=== PATIENT | female | born 1935 | race Caucasian/White ===

== ENCOUNTER 2020-04-21 19:21 | Inpatient (IN) | payer BC, MEDICARE ==
[~2020-04-21] VITALS: Ht 157.5 cm; Wt 50.8 kg
[~2020-04-21 19:21] MED LIST: ACET325T53 PO; ASCO500C16 PO; BUSP15TA3 PO; CLOP75TA15 PO; DULO60CA45 PO; HYDR-3974 PO; LEVO150T8 PO; MEMA10TA PO; QUET50TA PO; RANI300T4 PO
--- NOTE | 2020-04-21 19:34 | NUR ---
PT AAOX3. BIBRA FROM HOME FOR "SYNCOPAL EPISODE". NO FALL EPISODE REPORTED BY PATIENT. SKIN WARM AND INTACT. NO ACUTE DISTRESS NOTED. RR EVEN AND UNLABORED. NO NEURO DEFICT NOTED WELL. PT DENIES PAIN. AWAITING MD FOR EVAL AND ORDERS.
--- NOTE | 2020-04-21 19:48 | NUR ---
XRAY AT BEDSIDE
--- NOTE | 2020-04-21 19:52 | NUR ---
PT BROUGHT TO CT
--- NOTE | 2020-04-21 20:04 | NUR ---
SPOKE TO LAB. WILL DRAW BLOOD SOON.
--- NOTE | 2020-04-21 20:10 | NUR ---
WIRING MECHANIC AT BEDSIDE
[2020-04-21 20:19] LABS: BASOPHILS % (AUTO) 0.5 % (0.0-2.0); EOSINOPHILS % (AUTO) 0.7 % (0.0-6.0); HEMATOCRIT 36 % (33-45); HEMOGLOBIN 11.8 g/dL (11.5-14.8); LYMPHOCYTES # (AUTO) 1.4 /CMM (0.8-4.8); LYMPHOCYTES % (AUTO) 19.4 % (20.0-44.0); MEAN CORPUSCULAR HGB CONC 32 g/dl (31.0-36.0); MEAN CORPUSCULAR VOLUME 87 fL (82-100); MONOCYTES # (AUTO) 0.5 /CMM (0.1-1.30); MONOCYTES % (AUTO) 6.9 % (2.0-12.0); NEUTROPHILS # (AUTO) 5.1 /CMM (1.8-8.9); NEUTROPHILS % (AUTO) 72.5 % (43.0-81.0); PLATELET COUNT (AUTO) 255 /CMM (150-450); RED BLOOD CELL COUNT(AUTO) 4.19 MIL/uL (4.0-5.2)
[2020-04-21 20:27] LABS: CALCIUM, SERUM 9.1 mg/dL (8.5-10.1); CARBON DIOXIDE 27 mmol/L (21-32); CHLORIDE 105 mmol/L (98-107); CREATININE 1.3 mg/dL (0.6-1.3); GLUCOSE 147 mg/dL (74-106); POTASSIUM 3.7 mmol/L (3.5-5.1); SODIUM SERUM 140 mmol/L (136-145); UREA NITROGEN, BLOOD 27 mg/dL (7-18)
[2020-04-21] MEDS ORDERED: IV NS 0.9% 1,000 ML IV ONE (20:30)
--- NOTE | 2020-04-21 21:03 | NUR ---
URINE COLLECTED AND SENT TO LAB
[2020-04-21 21:08] LABS: BILIRUBIN,URINE Negative (NEGATIVE); BLOOD, URINE Moderate Ery/uL (NEGATIVE); COLOR,URINE Yellow (YELLOW); KETONES,URINE Trace (NEGATIVE); LEUKOCYTE ESTERASE ,URINE Small (NEGATIVE); NITRITE, URINE Negative (NEGATIVE); PROTEIN,URINE >=300 mg/dl (NEGATIVE); UGLUCOSE Negative (NEGATIVE); UROBILINOGEN,URINE 0.2 EU/dL (0.2)
[2020-04-21 21:14] LABS: APPEARANCE,URINE CLOUDY (CLEAR)
--- NOTE | 2020-04-21 21:16 | NUR ---
PT DENIES PAIN. PROVIDED WITH BLANKET. VSS.
--- NOTE | 2020-04-21 21:22 | NUR ---
PAGED CODI VASQUEZ
[2020-04-21 21:29] LABS: BACTERIA,URINE Few /HPF (None Seen); MUCUS,URINE Few /LPF (None Seen); SQUAMOUS EPITHELIAL CELL,UR Few /HPF (None Seen); URINE AMORPHOUS URATE Moderate /HPF (None Seen); WBC,URINE 81-100 /HPF (0-3)
[2020-04-21] MEDS ORDERED: CEFTRIAXONE 1 G VIAL IM ONE (21:30)
[2020-04-21] MEDS ORDERED: CEFTRIAXONE 1GM BAG (ER ONLY) 50 ML IV ONE (21:34)
--- NOTE | 2020-04-21 21:35 | NUR ---
CALLED SUP FOR BED
--- NOTE | 2020-04-21 21:42 | NUR ---
DR. ROGERS SPEAKING WITH HOSPITALIST
[2020-04-21] MEDS ORDERED: RISP0.5T20 PO (21:57)
[2020-04-21] MEDS ORDERED: CLON1TAB12 PO (21:57)
[2020-04-21] MEDS ORDERED: POTA-10 PO (21:57)
[2020-04-21] MEDS ORDERED: GALA24CA PO (21:57)
--- NOTE | 2020-04-21 21:57 | NUR ---
BED ASSIGNMENT 311-2
[2020-04-21] MEDS ORDERED: CEFTRIAXONE 1GM BAG (ER ONLY) 1 GM/50 ML PIGGYBACK IV ONE (22:00)
[2020-04-21] MEDS: SIMVASTATIN 10 MG TABLET PO SCH (22:00)
--- NOTE | 2020-04-21 22:34 | NUR ---
REPORT GIVEN TO REJI JEAN FOR NOLAN
--- NOTE | 2020-04-21 22:47 | NUR ---
PT TRANSFERED PER ACLS PROTOCOL
--- NOTE | 2020-04-21 22:50 | NUR ---
TELE/RN NEW ADMISSION NOTES RECEIVED PATIENT ON A GURNEY FROM ER ACCOMPANIED BY NURSE, PATIENT ABLE TO STATE NAME, AWAKE, ALERT X2, DX WITH UTI, VITAL SIGNS CHECK WITHIN NORMAL , OBSERVE BEHAVIOR AND ATTEMPTING TO GET OUT OF BED, BUE AND BLE STRONG, KICKING AND HAS STRONG TURBINE ROOM ATTENDANT. REQUIRE EXTENSIVE ASSISTANCE FOR SAFETY. RESPIRATIONS EVEN AND UNLABORED, EASILY DISTRACTED.
[2020-04-21 22:51] VITALS: BP 154/104
--- NOTE | 2020-04-21 22:51 | NUR ---
PATIENT ARRIVED ON A GURNEY AND CAROTID DUPLEX AND ECHO CARDIO BEING DINE AT BEDSIDE SOON PATIENT ARRIVED ON THE ROOM BY CHAS.
[2020-04-21 23:00] VITALS: BP 154/104
[2020-04-22] VITALS: BP 154/104
[2020-04-22] MEDS: IV NS 0.9% 1,000 ML IV SCH ×2 (00:14→16:14)
[2020-04-22] MEDS: ENOXAPARIN SODIUM 30 MG/0.3 ML DISP.SYRIN SQ SCH ×2 (00:15→21:51)
[2020-04-22] MEDS: BLOOD SUGAR DIAGNOSTIC 1 EACH STRIP IN SCH ×6 (00:16→17:28)
--- NOTE | 2020-04-22 01:04 | NUR ---
RECEIVED ORDER FROM MD FOR SOFT RESTRAINTS DUE TO PATIENT BEHAVIOR, COMBATIVE BEHAVIOR, REFUSAL OF CARE AND ATTEMPTING TO GET OUT OF BED.
--- NOTE | 2020-04-22 01:06 | NUR ---
PER MD ORDER TO FOLLOW UP SITTER ONCE AVAILABLE.
[2020-04-22 03:29] LABS: BASOPHILS % (AUTO) 0.5 % (0.0-2.0); EOSINOPHILS % (AUTO) 0.8 % (0.0-6.0); HEMATOCRIT 42 % (33-45); HEMOGLOBIN 13.4 g/dL (11.5-14.8); LYMPHOCYTES # (AUTO) 1.4 /CMM (0.8-4.8); MEAN CORPUSCULAR HGB CONC 32 g/dl (31.0-36.0); MEAN CORPUSCULAR VOLUME 86 fL (82-100); MONOCYTES # (AUTO) 0.3 /CMM (0.1-1.30); NEUTROPHILS # (AUTO) 4.4 /CMM (1.8-8.9); NEUTROPHILS % (AUTO) 70.7 % (43.0-81.0); PLATELET COUNT (AUTO) 261 /CMM (150-450); RED BLOOD CELL COUNT(AUTO) 4.85 MIL/uL (4.0-5.2); WHITE BLOOD COUNT (AUTO) 6.2 K/uL (4.3-11.0)
[2020-04-22 03:44] LABS: ALANINE AMINOTRANSFERASE 24 U/L (12-78); ALBUMIN 3.4 g/dL (3.4-5.0); ALKALINE PHOSPHATASE 91 U/L (46-116); ASPARTATE AMINOTRANSFERASE 20 U/L (15-37); BILIRUBIN,TOTAL 0.5 mg/dL (0.2-1.0); CARBON DIOXIDE 30 mmol/L (21-32); CHLORIDE 104 mmol/L (98-107); GLUCOSE 108 mg/dL (74-106); MAGNESIUM 2.2 mg/dL (1.8-2.4); POTASSIUM 4.1 mmol/L (3.5-5.1); SODIUM SERUM 140 mmol/L (136-145); TOTAL PROTEIN, SERUM 7.4 g/dL (6.4-8.2); UREA NITROGEN, BLOOD 20 mg/dL (7-18)
[2020-04-22 03:55] LABS: CHOLESTEROL 128 mg/dL (<200); HDL CHOLESTEROL 60 mg/dL (40-60); LDL 60 mg/dL (0-99); THYROID STIMULATING HORMONE 1.091 uIU/mL (0.358-3.74); TRIGLYCERIDES 44 mg/dL (30-150)
[2020-04-22 04:00] VITALS: BP 147/85
--- NOTE | 2020-04-22 05:16 | NUR ---
blood sugar check at 110
--- NOTE | 2020-04-22 06:28 | NUR ---
311-2 TELE/RN NOTES ON TELE SR, RESPIRATIONS EVEN AND UNLABORED, ON ROOM AIR, ALERTX1. REQUIRE ASSISTANCE AND MONITOIRNG FOR SAFETY, UNABLE TO FOLLOW SIMPLE COMMANDS, WILL ENDORSE TO AM RN FOR NOLAN.
--- NOTE | 2020-04-22 06:28 | NUR ---
312-1 MS/RN OPENING NOTES PATIENT SLEPT FEW HOURS, TALKING TO SELF WHILE TV ON. RESPIRATIONS EVEN AND UNLABORED, SKIN WARM TO TOUCH, ATTENDED TO ALL NEEDS, BED LOCEKD, CALL LIGHTS WITHIN REACH. WILL MONITOR.
[2020-04-22] MEDS ORDERED: LEVOTHYROXINE SODIUM 150 MCG TABLET PO SCH (07:00)
--- NOTE | 2020-04-22 07:49 | NUR ---
TEXTED DR. LOPEZ FOR MRI APPROVAL.
[2020-04-22 08:00] VITALS: BP 149/93
--- NOTE | 2020-04-22 08:00 | NUR ---
rn notes received patient in the bed , a/o x1, confused, no acute respiratory distress, room air, trying to get out of bed. v/s wnl, on soft restrain upper bilateral arms, checked for circulation q 2 hr, patient npo for aspiration precaution. checked swallow evaluation, patient able to swallow well, administered scheduled medication, seen patient via PT. Patient unable to stand up get out of bed. patient freely moving upper, and lower extremities. call light within to reach, iv access on the left FA intact, infusing NS at 50 ml/hr. call light within to reach, continued monitoring.
[2020-04-22] MEDS ORDERED: LEVOTHYROXINE SODIUM 75 MCG TABLET PO SCH (08:15)
[2020-04-22] MEDS: PANTOPRAZOLE 40 MG VIAL IV SCH (09:56)
[2020-04-22] MEDS: busPIRone 5 MG TABLET PO SCH ×2 (10:10→16:29)
[2020-04-22] MEDS: ASPIRIN EC 325 MG TABLET.DR PO SCH (10:10)
[2020-04-22] MEDS: MEMANTINE HCL 5 MG TABLET PO SCH (10:10)
--- NOTE | 2020-04-22 11:00 | NUR ---
rn notes seen patient by Speech therapist patient on mechanical soft diet.
--- NOTE | 2020-04-22 13:00 | NUR ---
rn notes patient tolerated lunch 25 % with total assist, checked soft restrain for circulation. call light within to reach. patient need MRI W/WO CONTRAST. Called family for consent , left massage for returning back.
--- NOTE | 2020-04-22 15:32 | NUR ---
rn notes Seen patient via neurologist Dr. Hernandez, per MD canceled MRI at this time patient does not needed. Also Md speak family about patient condition.
--- NOTE | 2020-04-22 16:15 | NUR ---
rn notes patient grinding hr teeth often, notified Dr Cristina, and per neurologist patient have enough medication, do not need more sedation.
[2020-04-22] MEDS: risperiDONE 1 MG TABLET PO SCH (17:30)
--- NOTE | 2020-04-22 18:00 | NUR ---
RN NOTES PATIENT STABLE, NO ACUTE RESPIRATORY DISTRESS, ASSIST FOR DINNER PATIENT TOLERATED 35%, V/S STABLE, INFUSING NS AT 100 ML/HR ON LEFT FA INTACT, ALSO ADMINISTERED SCHEDULED MEDICATION BY CRUSHING. RECHECKED RESTRAIN FOR CIRCULATION Q 2 HR. CALL LIGHT WITHIN TO REACH. ENDORSED ONCOMING NURSE FOLLOW PLAN OF CARE.
--- NOTE | 2020-04-22 19:45 | NUR ---
nurse assistant initial notes received report from am nurse Marylu and saw pt in bed confused tried to get up even though pt still on restraint. re-oriented where she at but she doesn't listened . no signs of any acute distress noted. She still with IVF of NS at 100 ml/hr infusing on her LFA patent and intact. both bilateral wrist restrain , skin warm to touch and pulse present. kept her warm and comfortable at all times. will continue monitoring. bed alarm set for safety.
[2020-04-22 20:00] VITALS: BP 148/87
[2020-04-22] MEDS: QUETIAPINE FUMARATE 100 MG TABLET PO SCH (21:46)
[2020-04-22] MEDS: SIMVASTATIN 10 MG TABLET PO SCH (21:46)
[2020-04-22] MEDS: CEFTRIAXONE 2 G in IV D5W 100 ML IV SCH (22:03)
--- NOTE | 2020-04-22 22:32 | NUR ---
immigration case worker notes routine meds given with apples sauce and pt tolerated well. no aspiration noted . kept her warm and comfortable at all times. will continue monitoring. place call light at reach.
[2020-04-23] VITALS: BP 115/47
[2020-04-23] MEDS: BLOOD SUGAR DIAGNOSTIC 1 EACH STRIP IN SCH ×4 (00:35→17:07)
--- NOTE | 2020-04-23 00:40 | NUR ---
road crossing guard notes blood sugar 96, no insulin due at this time. no signs of hypo glycemia noted at this time.
[2020-04-23] MEDS: IV NS 0.9% 1,000 ML IV SCH ×3 (02:49→18:24)
--- NOTE | 2020-04-23 06:50 | NUR ---
tele oil fire specialist closing notes pt back to sleep after sponges bath rendered by KELSI Barrett. stable vidal the night and slept well. no signs of any acute distress noted. All due meds given and all needs met. Blood sugar checked done 85, no insulin due at this time. No signs of hypoglycemia noted. Still with IVF of NS at 100ml/hr . remain on soft wrist restraint for pt safety. Sinus Rhythm per monitor. will endorse to am nurse for continuity of care.
[2020-04-23 07:12] LABS: BASOPHILS % (AUTO) 0.5 % (0.0-2.0); EOSINOPHILS % (AUTO) 1.1 % (0.0-6.0); HEMATOCRIT 31 % (33-45); LYMPHOCYTES # (AUTO) 1.3 /CMM (0.8-4.8); LYMPHOCYTES % (AUTO) 30.4 % (20.0-44.0); MEAN CORPUSCULAR HGB CONC 32 g/dl (31.0-36.0); MEAN CORPUSCULAR VOLUME 87 fL (82-100); MONOCYTES # (AUTO) 0.3 /CMM (0.1-1.30); MONOCYTES % (AUTO) 7.7 % (2.0-12.0); NEUTROPHILS # (AUTO) 2.6 /CMM (1.8-8.9); NEUTROPHILS % (AUTO) 60.3 % (43.0-81.0); PLATELET COUNT (AUTO) 190 /CMM (150-450); WHITE BLOOD COUNT (AUTO) 4.4 K/uL (4.3-11.0)
[2020-04-23 07:30] VITALS: BP 133/56
--- NOTE | 2020-04-23 07:30 | NUR ---
Tele/RN Opening note Received patient in bed AO x 1, able to responds all stimuli. Pt does no appears pain or any discomfort. Respiratory even and unlabored in room air, skin is warm to kept clean/dry, intact IV site. Patient attempting out of the bed, soft restrains on both wrist for safety. Keep bed in lock with low position and elevated head of bed for secure airway. Call light within reach, will continue to monitor for safety.
[2020-04-23 07:49] LABS: ALBUMIN 2.2 g/dL (3.4-5.0); BILIRUBIN,TOTAL 0.4 mg/dL (0.2-1.0); CALCIUM, SERUM 6.7 mg/dL (8.5-10.1); CREATININE 0.7 mg/dL (0.6-1.3); MAGNESIUM 1.6 mg/dL (1.8-2.4); POTASSIUM 3.3 mmol/L (3.5-5.1)
[2020-04-23] MEDS: PANTOPRAZOLE 40 MG VIAL IV SCH (08:47)
[2020-04-23] MEDS: ASPIRIN EC 325 MG TABLET.DR PO SCH (08:47)
[2020-04-23] MEDS: LEVOTHYROXINE SODIUM 75 MCG TABLET PO SCH (08:47)
[2020-04-23] MEDS: MEMANTINE HCL 5 MG TABLET PO SCH (08:47)
[2020-04-23] MEDS: busPIRone 5 MG TABLET PO SCH ×2 (08:48→17:07)
[2020-04-23] MEDS ORDERED: POTASSIUM PHOSPHATE MM 15 MMOL in IV NS 0.9% 250 ML IV SCH (09:00)
[2020-04-23] MEDS: Magnesium 1GM/D5W 100ML PREMIX 100 ML IV SCH ×2 (09:23→10:46)
[2020-04-23] MEDS: POTASSIUM PHOSPHATE MM 7.5 MMOL in IV D5W 100 ML IV SCH ×2 (10:29→13:34)
[2020-04-23 12:00] VITALS: BP 128/88
--- NOTE | 2020-04-23 16:20 | NUR ---
Caregiver/Haley brought Galantamine 24mg x 1 bottle and sent pharmacy, receipt in the chart.
[2020-04-23] MEDS: risperiDONE 1 MG TABLET PO SCH (17:06)
--- NOTE | 2020-04-23 18:30 | NUR ---
Tele/RN Closing note Patient in bed comfortably and sleeping, does no appears pain or discomfort, skin is warm to touch, clean/dry, intact IV site running 100ml/hr, also no adverse reaction observed from IV ATB. Respiratory even and unlabored in room air. Keep bed in lock with low position and elevated HOB for secure airway. Call light within reach, will endorse fast food shift supervisor.
--- NOTE | 2020-04-23 19:00 | NUR ---
with left upper arm bruise noted.
--- NOTE | 2020-04-23 19:00 | NUR ---
MS RN OPENING NOTES: RECEIVED PATIENT IN BED, AWAKE, CONFUSED. NO SOB NOTED. NOT IN PAIN. HOB ELEVATED AT 30 DEGREES. WITH BILATERAL SOFT WRISTS RESTRAINTS ON, CHECKED THE SKIN AND CIRCULATIONS-WNL. BED ALARM ON. BED IN LOWEST AND LOCKED POSITION.
--- NOTE | 2020-04-23 19:00 | NUR ---
WITH LEFT WRIST/HAND BRUISE NOTED.
[2020-04-23 20:00] VITALS: BP 131/73
[2020-04-23] MEDS: CEFTRIAXONE 2 G in IV D5W 100 ML IV SCH (21:50)
[2020-04-23] MEDS: QUETIAPINE FUMARATE 100 MG TABLET PO SCH (21:50)
[2020-04-23] MEDS: SIMVASTATIN 10 MG TABLET PO SCH (21:50)
[2020-04-23] MEDS: ENOXAPARIN SODIUM 30 MG/0.3 ML DISP.SYRIN SQ SCH (21:52)
[2020-04-24] MEDS: IV NS 0.9% 1,000 ML IV SCH (04:20)
[2020-04-24] MEDS: BLOOD SUGAR DIAGNOSTIC 1 EACH STRIP IN SCH ×3 (06:00→12:00)
--- NOTE | 2020-04-24 06:08 | NUR ---
MS RN CLOSING NOTES: PATIENT IN BED, AWAKE, CONFUSED. NO SOB NOTED. NO COMPLAIN OF PAIN. WITH BILATERAL SOFT WRISTS RESTRAINTS ON, SKIN AND CIRCULATION CHECKED, WNL. HOB ELEVATED AT 30 DEGREES AT ALL TIMES. BED ALARM ON. BED IN LOWEST AND LOCKED POSITION. BLOOD SUGAR FINGERSTICK= 76, PATIENT HAD APPLE SAUCE THIS MORNING.
[2020-04-24 08:00] VITALS: BP 151/90
[2020-04-24 08:13] LABS: BASOPHILS % (AUTO) 0.4 % (0.0-2.0); EOSINOPHILS % (AUTO) 0.5 % (0.0-6.0); HEMATOCRIT 41 % (33-45); LYMPHOCYTES # (AUTO) 1.5 /CMM (0.8-4.8); LYMPHOCYTES % (AUTO) 21.1 % (20.0-44.0); MEAN CORPUSCULAR HGB CONC 32 g/dl (31.0-36.0); MEAN CORPUSCULAR VOLUME 86 fL (82-100); MONOCYTES # (AUTO) 0.5 /CMM (0.1-1.30); MONOCYTES % (AUTO) 7.6 % (2.0-12.0); NEUTROPHILS % (AUTO) 70.4 % (43.0-81.0); PLATELET COUNT (AUTO) 245 /CMM (150-450); RED BLOOD CELL COUNT(AUTO) 4.75 MIL/uL (4.0-5.2); WHITE BLOOD COUNT (AUTO) 7.1 K/uL (4.3-11.0)
[2020-04-24 08:32] LABS: CALCIUM, SERUM 8.7 mg/dL (8.5-10.1); CREATININE 0.9 mg/dL (0.6-1.3); MAGNESIUM 2.2 mg/dL (1.8-2.4); POTASSIUM 4.2 mmol/L (3.5-5.1)
[2020-04-24] MEDS ORDERED: GALANTAMINE HYDROBROMIDE 24 MG PO SCH (09:00)
[2020-04-24] MEDS: ASPIRIN EC 325 MG TABLET.DR PO SCH (09:10)
[2020-04-24] MEDS: busPIRone 5 MG TABLET PO SCH (09:11)
[2020-04-24] MEDS: PANTOPRAZOLE 40 MG VIAL IV SCH (09:11)
[2020-04-24] MEDS: MEMANTINE HCL 5 MG TABLET PO SCH (09:11)
[2020-04-24] MEDS: LEVOTHYROXINE SODIUM 75 MCG TABLET PO SCH (09:14)
[2020-04-24] MEDS ORDERED: CEPH-570 PO (11:20)
--- NOTE | 2020-04-24 14:41 | NUR ---
Patient cleared for d/c to home with caregiver by MD . Patient is confused at baseline , VS are stable and at baseline, afebrile, on room air saturation above 95%. Patient incontinent, skin tear on left arm , picture taken by nightshift nurse. Patient kept clean and dry, all needs attended. caregiver informed and d/c instructions provided to caregiver via phon; verbalized understanding. IV line removed , ID wrist bands removed. Patient picked up by ambulance
== END 2020-04-24 13:30 | disposition home or self-care (01) | DRG 689 ==
LOC: ER 19:25 → TELE 22:05 → MED 04-23 09:55
PROVIDERS: ADMIT Registered Nurse; ATTEND Hospitalist
DX: N39.0 Urinary tract infection, site not specified (principal); G93.41 Metabolic encephalopathy; I95.1 Orthostatic hypotension; Z86.73 Personal history of transient ischemic attack (TIA), and cerebral infarction without residual deficits; G30.9 Alzheimer's disease, unspecified; F02.80 Dementia in other diseases classified elsewhere, unspecified severity, without behavioral disturbance, psychotic disturbance, mood disturbance, and anxiety; E03.9 Hypothyroidism, unspecified; I10 Essential (primary) hypertension; E86.0 Dehydration; F01.50 Vascular dementia, unspecified severity, without behavioral disturbance, psychotic disturbance, mood disturbance, and anxiety; B96.4 Proteus (mirabilis) (morganii) as the cause of diseases classified elsewhere
CPT/HCPCS: 36415; 70450-TC; 71045-TC; 80048-TC; 80053-TC; 80061-TC; 81000-TC; 82962-TC; 83735-TC; 84100-TC; 84443-TC; 84484-TC; 85025-TC; 85730-TC; 87081-TC; 87086-TC; 87186-TC; 92611-TC; 93307-TC; 93880-TC; 97530-TC; C9113; G0378; J0696; J1650; J3475; J3490; J7030; J7050; J7060

== ENCOUNTER 2020-06-13 16:12 | Inpatient (IN) | payer MEDICARE, BC ==
[~2020-06-13] VITALS: Ht 152.4 cm; Wt 40.8 kg
[~2020-06-13 16:12] MED LIST changes: -ACET325T53 PO; -ASCO500C16 PO; +CEPH-570 PO; +CLON1TAB12 PO; -CLOP75TA15 PO; -DULO60CA45 PO; +GALA24CA PO; -HYDR-3974 PO; +POTA-10 PO; -RANI300T4 PO; +RISP0.5T20 PO
[2020-06-13] MEDS ORDERED: DOCU-141 PO (16:25)
[2020-06-13] MEDS ORDERED: FAMO40TA7 PO (16:25)
[2020-06-13] MEDS ORDERED: ACET-868 PO (16:25)
[2020-06-13] MEDS ORDERED: MAGN400O6 PO (16:25)
[2020-06-13] MEDS ORDERED: BUSP5TAB3 PO (16:25)
[2020-06-13] MEDS ORDERED: CLOP75TA15 PO (16:25)
[2020-06-13] MEDS ORDERED: VALS80TA2 PO (16:25)
[2020-06-13] MEDS ORDERED: CRAN425C6 PO (16:25)
[2020-06-13] MEDS ORDERED: HYDR-4384 PO (16:25)
[2020-06-13] MEDS ORDERED: ASPI-992 PO (16:25)
[2020-06-13] MEDS ORDERED: CYAN-51 PO (16:25)
[2020-06-13] MEDS ORDERED: NA P133E RC (16:25)
[2020-06-13] MEDS ORDERED: IV NS 0.9% 500 ML BAG IV ONE (16:30)
[2020-06-13 16:55] LABS: BASOPHILS % (AUTO) 0.1 % (0.0-2.0); EOSINOPHILS % (AUTO) 0.1 % (0.0-6.0); HEMATOCRIT 46 % (33-45); HEMOGLOBIN 14.3 g/dL (11.5-14.8); LYMPHOCYTES # (AUTO) 1.5 /CMM (0.8-4.8); LYMPHOCYTES % (AUTO) 11.9 % (20.0-44.0); MEAN CORPUSCULAR HGB CONC 31 g/dl (31.0-36.0); MEAN CORPUSCULAR VOLUME 93 fL (82-100); NEUTROPHILS % (AUTO) 79.9 % (43.0-81.0); PLATELET COUNT (AUTO) 209 /CMM (150-450); RED BLOOD CELL COUNT(AUTO) 4.97 MIL/uL (4.0-5.2); WHITE BLOOD COUNT (AUTO) 12.5 K/uL (4.3-11.0)
[2020-06-13] MEDS ORDERED: MEMANTINE HCL 5 MG TABLET PO SCH (17:00)
--- NOTE | 2020-06-13 17:00 | NUR ---
bell, from snf, rectal bleeding x 1 day, fever. PT EYES CLOSED, NON VERBAL. PT SEEN & EVAL'D BY DR. VERAS. PLACED ON DEVELOPMENT ASSOCIATE, SR. WILL CONT TO MONITOR.
[2020-06-13 17:09] LABS: ALANINE AMINOTRANSFERASE 39 U/L (12-78); ALBUMIN 2.9 g/dL (3.4-5.0); ALKALINE PHOSPHATASE 130 U/L (46-116); ASPARTATE AMINOTRANSFERASE 27 U/L (15-37); BILIRUBIN,DIRECT 0.2 mg/dL (0.0-0.2); BILIRUBIN,TOTAL 0.7 mg/dL (0.2-1.0); CALCIUM, SERUM 10.1 mg/dL (8.5-10.1); CARBON DIOXIDE 22 mmol/L (21-32); CREATININE 1.8 mg/dL (0.6-1.3); GLUCOSE 116 mg/dL (74-106); TOTAL PROTEIN, SERUM 7.3 g/dL (6.4-8.2); UREA NITROGEN, BLOOD 67 mg/dL (7-18)
[2020-06-13 17:17] LABS: CHLORIDE 135 mmol/L (98-107); SODIUM SERUM 168 mmol/L (136-145)
[2020-06-13 17:25] LABS: APPEARANCE,URINE CLOUDY (CLEAR); BILIRUBIN,URINE NEGATIVE (NEGATIVE); BLOOD, URINE LARGE Ery/uL (NEGATIVE); COLOR,URINE YELLOW (YELLOW); KETONES,URINE NEGATIVE (NEGATIVE); LEUKOCYTE ESTERASE ,URINE MODERATE (NEGATIVE); NITRITE, URINE NEGATIVE (NEGATIVE); PH,URINE 5.5 (5.0-8.0); PROTEIN,URINE 30 mg/dl (NEGATIVE); UGLUCOSE NEGATIVE (NEGATIVE); UROBILINOGEN,URINE 0.2 EU/dL (0.2)
[2020-06-13 17:35] LABS: BACTERIA,URINE 2+ /HPF (None Seen); SQUAMOUS EPITHELIAL CELL,UR 0-2 /HPF (None Seen)
[2020-06-13 17:36] LABS: YEAST,URINE Moderate /HPF (None Seen)
[2020-06-13 17:44] LABS: BAND % (MANUAL) 2 % (0.0-5.0); LYMPHOCYTES % (MANUAL) 16 % (16-48); MONOCYTES % (MANUAL) 5 % (0-11.0); NEUTROPHILS % (MANUAL) 77 (42-76)
--- NOTE | 2020-06-13 17:49 | NUR ---
BED 108
--- NOTE | 2020-06-13 17:57 | NUR ---
[facility] PAGED
[2020-06-13] MEDS ORDERED: IV NS 0.9% 1,000 ML BAG IV ONE (18:00)
[2020-06-13] MEDS ORDERED: CEFTRIAXONE 1GM BAG (ER ONLY) 50 ML IV ONE ×2 (18:00→18:19)
--- NOTE | 2020-06-13 18:25 | NUR ---
REPORT GIVEN TO MIRANDA HURTADO FOR NOLAN.
[2020-06-13] MEDS ORDERED: MAGNESIUM HYDROXIDE 30 ML UDC PO PRN (18:30)
[2020-06-13] MEDS ORDERED: ZOLPIDEM TARTRATE 5 MG TABLET PO PRN (18:30)
[2020-06-13] MEDS ORDERED: ONDANSETRON HCL/PF 4 MG/2 ML VIAL IVP PRN (18:30)
[2020-06-13] MEDS ORDERED: Z GUARD REMEDY 2 OZ OINT TP PRN (18:30)
[2020-06-13] MEDS ORDERED: MAG HYDROX/AL HYDROX/SIMETH 30 ML UDC PO PRN (18:30)
[2020-06-13] MEDS ORDERED: ACETAMINOPHEN 325 MG TABLET PO PRN (18:30)
[2020-06-13 19:01] VITALS: BP 118/66
--- NOTE | 2020-06-13 19:01 | NUR ---
EMERGENCY MEDICINE NURSE PRACTITIONER NOTES RECEIVED PATIENT FROM ER NURSE, PATIENT TRANSFERRED TO BED. RESPONSIVE TO VERBAL AND TACTILE STIMULI. NON-VERBAL. ORIENTED PATIENT TO ROOM, UNIT AND CALL LIGHT. ON TELE MONITORING SR: 83. LEFT AC # 18 INTACT AND PATENT. V/S T:97.5; B/P: 118/66; HR: 86; RR: 18 SPO2: 96% ROOM AIR. BED IN LOWEST POSITION, LOCKED. BED ALARM ON. CALL LIGHT WITHIN REACH. ENDORSED TO ONCOMING SHIFT FOR CONTINUATION OF CARE.
[2020-06-13 19:30] VITALS: BP 116/44
--- NOTE | 2020-06-13 20:00 | NUR ---
FOOD AND NUTRITION TEACHERVARNISH BLENDER NOTES RECEIVED PATIENT FROM MORNING SHIFT FOR ADMISSION, ALERT AND ORIENTED X 1. BREATHING REGULAR AND UNLABORED ON OXYGEN AT 2L/MIN VIA NASAL CANNULA. LEFT FOREARM G18 IV LINE INTACT AND PATENT, FLUSHING WELL WITH NO BLEEDING OR S/S OF INFILTRATION NOTED. ATTACHED TO CREW LEADER WITH NSR AT 68bpm. BODY ASSESSMENT DONE, SEEN WITH SACRAL REDNESS, BUE BRUISES AND UPPER BACK RASH. PHOTO TAKEN, KEPT IN CHART. INITIAL SKIN TREATMENT PROVIDED. NO S/S OF PAIN/DISCOMFORT OBSERVED AT THIS TIME. BED LOW AND LOCKED ON SEMI FOWLERS POSITION. CALL LIGHT IN REACH. WILL CONTINUE TO MONITOR.
[2020-06-13] MEDS: MEMANTINE HCL 5 MG TABLET PO SCH (20:05)
--- NOTE | 2020-06-13 20:05 | NUR ---
2004 PATIENT NOTED TO BE COVID 19 NEGATIVE PER RAPID TEST. AGA CAMARA MADE AWARE OF RAPID COVID RESULT AND TOLD HIM THAT PATIENT CAME FROM SNF WITH FEVER WITH ORDER TO DO COVID 19 NON RAPID TEST. ORDER NOTED, CALLED LAB AND SPOKE WITH ANABELLA REGARDING NEW ORDER AND HE SAID TO PUT COVID 19 MARTHA TEST FROM SELECTION. MIRANDA OLEARY NOTIFIED OF NOTIFIED.
[2020-06-13] MEDS: IV 1/2NS 1000 ML 1,000 ML IV PRN (21:07)
--- NOTE | 2020-06-13 21:45 | NUR ---
SCRAP METAL BURNER NOTES COVID PCR SWAB DONE, SPECIMEN SENT TO LAB.
[2020-06-14] VITALS: BP 95/54
[2020-06-14 04:00] VITALS: BP 141/73
[2020-06-14] MEDS: HYDROCODONE/APAP 5/325MG 1 EACH TABLET PO PRN (04:03)
[2020-06-14] MEDS: IV 1/2NS 1000 ML 1,000 ML IV PRN ×2 (05:59→17:24)
[2020-06-14 06:21] LABS: BASOPHILS % (AUTO) 0.2 % (0.0-2.0); EOSINOPHILS % (AUTO) 0.5 % (0.0-6.0); HEMATOCRIT 40 % (33-45); HEMOGLOBIN 12.4 g/dL (11.5-14.8); LYMPHOCYTES # (AUTO) 1.3 /CMM (0.8-4.8); LYMPHOCYTES % (AUTO) 13.2 % (20.0-44.0); MEAN CORPUSCULAR HGB CONC 31 g/dl (31.0-36.0); MEAN CORPUSCULAR VOLUME 95 fL (82-100); MONOCYTES # (AUTO) 0.7 /CMM (0.1-1.30); MONOCYTES % (AUTO) 7.6 % (2.0-12.0); NEUTROPHILS # (AUTO) 7.6 /CMM (1.8-8.9); NEUTROPHILS % (AUTO) 78.5 % (43.0-81.0); PLATELET COUNT (AUTO) 149 /CMM (150-450); RED BLOOD CELL COUNT(AUTO) 4.26 MIL/uL (4.0-5.2); WHITE BLOOD COUNT (AUTO) 9.6 K/uL (4.3-11.0)
[2020-06-14 06:38] LABS: CALCIUM, SERUM 8.9 mg/dL (8.5-10.1); CREATININE 1.2 mg/dL (0.6-1.3); MAGNESIUM 2.7 mg/dL (1.8-2.4); PHOSPHORUS 2.3 mg/dL (2.5-4.9)
--- NOTE | 2020-06-14 06:40 | NUR ---
M60A2 ARMOR CREWMAN CLOSING NOTES PATIENT IN BED ALERT AND ORIENTED X 1. AFEBRILE WITH NO S/S OF DISTRESS OBSERVED. MAINTAINED ON CARDIAC MONITORING WITH NSR AT 70bpm. LEFT FOREARM G18 PATENT AND INFUSING WELL. ON NOTHING BY MOUTH. NO S/S OF PAIN/DISCOMFORT SEEN AT THIS TIME. BED LOW AND LOCKED ON SEMI FOWLERS POSITION. CALL LIGHT IN REACH. WILL ENDORSE TO MORNING SHIFT FOR NOLAN.
--- NOTE | 2020-06-14 07:20 | NUR ---
RN OPENING NOTES PATIENT IN BED RESTING. LETHARGIC. A/OX1, CONFUSED. NOT IN ANY FORM OF DISTRESS. NO SOB. NO S/S OF PAIN OR DISCOMFORT AT THIS TIME. IV ACCESS INTACT AND PATENT. SAFETY MEASURES IN PLACE. BED IN LOW/LOCKED PSOTIION, SIDERAILS UP. BED ALARM ON, SEMIFOWLERS, CALL LIGHT IN REACH. WILL CONT TO MONIOTR ACCORDINGLY
[2020-06-14] MEDS: LEVOTHYROXINE SODIUM 75 MCG TABLET PO SCH (07:30)
[2020-06-14 08:00] VITALS: BP 150/61
[2020-06-14] MEDS: MEMANTINE HCL 5 MG TABLET PO SCH ×2 (09:00→16:19)
--- NOTE | 2020-06-14 09:54 | NUR ---
WOUND CARE CONSULT: REVIEWED CHART, NURSING DOCUMENTATION AND PHOTOS WHICH SHOW SACRAL SCARRING WELL INTACT DEEP TISSUE INJURY, PRESENT ON ADMISSION. RECOMMENDATIONS MADE FOR SKIN PROTECTION AND WOUND CARE. DISCUSSED WITH NURSING STAFF. PT IS ON [place] LOW AIRLOSS BED. MD IN AGREEMENT WITH PLAN OF CARE.
[2020-06-14] MEDS: ENOXAPARIN SODIUM 30 MG/0.3 ML DISP.SYRIN SQ SCH (10:21)
[2020-06-14] MEDS ORDERED: NEUTRA PHOS 1 POWD.PACKET PO ONE (11:30)
[2020-06-14 16:00] VITALS: BP 134/84
[2020-06-14 16:06] LABS: OCCULT BLOOD STOOL POSITIVE (NEGATIVE)
--- NOTE | 2020-06-14 18:47 | NUR ---
RN CLOSING NOTES PATIENT IN STABLE CONDITION. ALL NEEDS ATTENDED AND PROVIDED. ALL DUE MEDS GIVEN ORDERED. TURNED AND REPOSIITONED PATIENT EVERY 2HRS AND NEEDED. KEPT PATIENT SKIN CLEAN AND DRY. KEPT PATIENT SAFE AND COMFORTABLE. BED IN LOW/LOCKED POSITION. SIDERAILS UPX2, CALL LIGHT IN REACH. WILL ENDORSE ACCORDINGLY. Addendum: 06/14/20 at 1849 by DIANDRA OROSCO BED ALARM ON
[2020-06-14 20:00] VITALS: BP 128/64
--- NOTE | 2020-06-14 20:00 | NUR ---
PATIENT RECEIVED IN BED. PT IS LETHARGIC. PT IS ON 2 L VIA NC. PT HAS UNLABORED BREATHING.PT HAS IV ACCESS ON L FOREARM INTACT AND PATENT. SAFETY MEASURES IN PLACE. BED IS AT LOWEST POSITION,LOCKED , SIDE RAILS UPX2, HOB ELEVATED.
[2020-06-15] VITALS (8 sets, daily range): BP systolic 91–152; BP diastolic 50–66
--- NOTE | 2020-06-15 02:07 | NUR ---
RN NOTE RECEIVED LAB REPORT THAT PT IS COVID NEGATIVE
[2020-06-15] MEDS: IV 1/2NS 1000 ML 1,000 ML IV PRN (03:01)
--- NOTE | 2020-06-15 05:39 | NUR ---
RN NOTE REPORT GIVEN TO GIA PINON).
--- NOTE | 2020-06-15 06:00 | NUR ---
RN NOTE PT TRANSFERRED TO 3 W PER ACLS PROTOCOL.
--- NOTE | 2020-06-15 06:38 | NUR ---
KIER TENDER NOTES RECEIVED A TRANSFERRED PATIENT FROM [place], CAL[place], INITIAL VITAL SIGNS TAKEN AND RECORDED FOLLOWS BP 141/66 HR 66 RR18 TEMP 98.1 SATING 98% ON O2 AT 2 LMP VIA NASAL CANNULA. ALL NEEDS ATTENDED AND ANTICIPATED. REPOSITIONED FOR COMFORT. IV ACCESS INTACT AND PATENT. TELE 60s, NO SIGNS OF ACUTE RESPIRATORY AND OR CARDIAC DISTRESS NOTED. WILL ENDORSE TO AM NURSE FOR CONTINUITY OF CARE.
[2020-06-15 07:10] LABS: CALCIUM, SERUM 8.6 mg/dL (8.5-10.1); CREATININE 0.8 mg/dL (0.6-1.3); PHOSPHORUS 2.2 mg/dL (2.5-4.9); POTASSIUM 3.7 mmol/L (3.5-5.1)
[2020-06-15] MEDS: MEMANTINE HCL 5 MG TABLET PO SCH ×2 (08:24→17:03)
[2020-06-15] MEDS: LEVOTHYROXINE SODIUM 75 MCG TABLET PO SCH (08:24)
[2020-06-15] MEDS: ENOXAPARIN SODIUM 30 MG/0.3 ML DISP.SYRIN SQ SCH (08:25)
--- NOTE | 2020-06-15 08:26 | NUR ---
TELE/RN OPENING NOTES RECEIVED PATIENT ON BED. NO APPARENT DISTRESS NOTED. DENIES PAIN AT THIS TIME. PATIENT ON TELE MONITOR SR 86 BPM. WILL CONTINUE TO MONITOR.
--- NOTE | 2020-06-15 08:28 | NUR ---
TELE/RN NOTES PATIENT WITH POSITIVE BLEEDING PER SECURITY RISK ANALYSTFOURTH OFFICER. LOVENOX 30MG SUBCUTANEOUS NO GIVEN. WILL CONTINUE TO MONITOR.
[2020-06-15] MEDS ORDERED: NEUTRA PHOS 1 POWD.PACKET PO ONE (09:00)
[2020-06-15 10:44] LABS: BASOPHILS % (AUTO) 0.2 % (0.0-2.0); EOSINOPHILS % (AUTO) 1.6 % (0.0-6.0); HEMATOCRIT 37 % (33-45); HEMOGLOBIN 11.6 g/dL (11.5-14.8); LYMPHOCYTES # (AUTO) 1.4 /CMM (0.8-4.8); LYMPHOCYTES % (AUTO) 16.9 % (20.0-44.0); MEAN CORPUSCULAR HGB CONC 31 g/dl (31.0-36.0); MEAN CORPUSCULAR VOLUME 94 fL (82-100); MONOCYTES # (AUTO) 0.6 /CMM (0.1-1.30); MONOCYTES % (AUTO) 7.5 % (2.0-12.0); NEUTROPHILS # (AUTO) 6.3 /CMM (1.8-8.9); NEUTROPHILS % (AUTO) 73.8 % (43.0-81.0); PLATELET COUNT (AUTO) 136 /CMM (150-450); RED BLOOD CELL COUNT(AUTO) 3.98 MIL/uL (4.0-5.2); WHITE BLOOD COUNT (AUTO) 8.6 K/uL (4.3-11.0)
[2020-06-15 10:46] LABS: IRON, SERUM 18 ug/dl (50-175); TOTAL IRON BINDING CAPACITY 158 ug/dl (250-450)
[2020-06-15] MEDS: HYDROCODONE/APAP 5/325MG 1 EACH TABLET PO PRN ×2 (11:56→17:17)
--- NOTE | 2020-06-15 11:57 | NUR ---
MS/RN NOTES NOTED PATIENT WITH SIGN AND SYMPTOM OF PAIN NORCO 5/325 MG P.O. WAS GIVEN WILL CONTINUE TO MONITOR.
[2020-06-15] MEDS: IV D5W 1,000 ML IV PRN (13:16)
[2020-06-15 13:40] LABS: FERRITIN 235 ng/mL (8-388)
--- NOTE | 2020-06-15 15:43 | NUR ---
MS/RN NOTES [place] STITCHER OPERATOR ORDER ENSURE 3 TIMES A DAY. NOTED AND CARRIED OUT.
[2020-06-15] MEDS: ENSURE ENLIVE CHOC 237 ML CAN PO SCH (17:00)
--- NOTE | 2020-06-15 18:37 | NUR ---
MS/RN CLOSING NOTES PATIENT IS ON BED. ALERT AND ORIENTED X1. PATIENT IN NO APPARENT RESPIRATORY DISTRESS NOTED. PATIENT NO SIGN AND SYMPTOM OF PAIN. IV ACCESS AT LEFT FOREARM # 18G WITH IV FLUID OF D5W 1 L AT 100 ML/HR ON AND INFUSING WELL. PATIENT WITH RED COLOR WATERY STOOL IN THE MORNING X1, NO SEDIMENTS MD IS AWARE. SEEN AND EXAMINE BY MD WITH ORDERS MADE AND CARRIED OUT. ALL DUE MEDICATION WAS GIVEN. SAFETY PRECAUTION IN PLACED. CHECKED AND TURNED PATIENT EVERY 2 HOURS. BED IN LOWEST POSITION AND LOCKED. SIDE RAILS UP X2. CALL LIGHT WITHIN REACH. WILL ENDORSED TO SIGN INSTALLER FOR NOLAN.
--- NOTE | 2020-06-15 19:40 | NUR ---
MS RN NOTES RECEIVED PATIENT ON BED. ALERT AND ORIENTED X1. PATIENT IN NO APPARENT RESPIRATORY OR CARDIAC DISTRESS NOTED. PATIENT NO SIGN AND SYMPTOM OF PAIN. IV ACCESS AT LEFT FOREARM # 18G WITH IV FLUID OF D5W 1 L AT 100 ML/HR ON AND INFUSING WELL. PATIENT WITH RED COLOR WATERY STOOL IN THE MORNING X1, REPORTED BY AM NURSE. NO SEDIMENTS MD AWARE. SAFETY MEASURES IN PLACE, ASPIRATION PRECAUTION EMPHASIZED. CALL LIGHT WITH IN EASY REACH. BED IN LOW LOCKED POSITIONED. ALL NEEDS ANTICIPATED. WILL CONTINUE TO MONITOR ACCORDINGLY
[2020-06-16] MEDS: IV D5W 1,000 ML IV PRN (05:03)
--- NOTE | 2020-06-16 06:13 | NUR ---
MS RN NOTES ALL NEEDS ATTENDED AND MET. PATIENT ON BED. ALERT AND ORIENTED X1. PATIENT IN NO APPARENT RESPIRATORY OR CARDIAC DISTRESS NOTED. PATIENT NO SIGN AND SYMPTOM OF PAIN. IV ACCESS AT LEFT FOREARM # 18G WITH IV FLUID OF D5W 1 L AT 100 ML/HR ON AND INFUSING WELL. SAFETY MEASURES IN PLACE, ASPIRATION PRECAUTION EMPHASIZED. CALL LIGHT WITH IN EASY REACH. BED IN LOW LOCKED POSITIONED. ALL NEEDS ANTICIPATED. WILL ENDORSE TO AM NURSE FOR CONTINUITY OF CARE.
[2020-06-16 07:02] LABS: BASOPHILS % (AUTO) 0.2 % (0.0-2.0); EOSINOPHILS % (AUTO) 1.4 % (0.0-6.0); HEMATOCRIT 34 % (33-45); HEMOGLOBIN 10.8 g/dL (11.5-14.8); LYMPHOCYTES # (AUTO) 1.5 /CMM (0.8-4.8); LYMPHOCYTES % (AUTO) 14.4 % (20.0-44.0); MEAN CORPUSCULAR HGB CONC 32 g/dl (31.0-36.0); MEAN CORPUSCULAR VOLUME 93 fL (82-100); MONOCYTES # (AUTO) 0.7 /CMM (0.1-1.30); MONOCYTES % (AUTO) 6.9 % (2.0-12.0); NEUTROPHILS % (AUTO) 77.1 % (43.0-81.0); PLATELET COUNT (AUTO) 128 /CMM (150-450); RED BLOOD CELL COUNT(AUTO) 3.69 MIL/uL (4.0-5.2); WHITE BLOOD COUNT (AUTO) 10.3 K/uL (4.3-11.0)
--- NOTE | 2020-06-16 07:30 | NUR ---
MS/RN - Assessment Patient is awake, alert to self, no s/s of pain, no apparent distress, uses supplemental oxygen 2lpm via NC. IVF D5W at 100 ml/hr infusing well on the LFA with no signs of infiltration. Patient had an episode of bloody stool last night x 1, morning labs reviewed, no critical results seen. Fall and aspiration precautions maintained. Will continue with current medical management.
[2020-06-16] MEDS: LEVOTHYROXINE SODIUM 75 MCG TABLET PO SCH (07:40)
[2020-06-16] MEDS: ENSURE ENLIVE CHOC 237 ML CAN PO SCH ×3 (07:41→16:28)
[2020-06-16 08:00] VITALS: BP 135/79
[2020-06-16] MEDS: MEMANTINE HCL 5 MG TABLET PO SCH ×2 (08:05→16:29)
[2020-06-16 15:40] LABS: OCCULT BLOOD STOOL POSITIVE (NEGATIVE)
--- NOTE | 2020-06-16 19:24 | NUR ---
M/S RN - End of shift summary Patient is alert to self, confused, afebrile, no s/s of pain, not in any form of distress, comfortable on 2lpm via NC. Patient for discharge home with hospice tonight. Hospice care was arranged with [facility] ([phone]) per family's request. Laine sister/POA aware of discharge and in agreement. Pictures taken on skin breakdown. Discharge paperwork done. Peripheral IV on the RFA and LFA removed with catheter tip intact, no redness, no swelling noted at the site. Ambulance ETA 19:30-20:00. Endorsed to night RN accordingly.
--- NOTE | 2020-06-16 19:45 | NUR ---
RN NOTES PT. LEFT THE HOSPITAL VIA AMBULANCE, PT. WILL BE HOME UNDER HOSPICE ( [facility]), NOT IN DISTRESS, NO PAIN NOTED, SPOKE TO PT. CAREGIVER SABI AND TOLD ME THAT HOSPICE NURSE ALREADY AT THEIR PLACE AND ALREADY SET UP EVERYTHING THEY NEED FOR THE PATIENT
== END 2020-06-16 19:45 | disposition hospice, home (50) | DRG 377 ==
LOC: ER 16:16 → TELE1 18:10 → TELE 06-15 06:02 → MED 06-15 08:46
PROVIDERS: ADMIT Internal Medicine; ATTEND Internal Medicine
DX: K62.5 Hemorrhage of anus and rectum (principal); G93.41 Metabolic encephalopathy; N17.0 Acute kidney failure with tubular necrosis; E87.0 Hyperosmolality and hypernatremia; N39.0 Urinary tract infection, site not specified; J98.11 Atelectasis; Z86.73 Personal history of transient ischemic attack (TIA), and cerebral infarction without residual deficits; E03.9 Hypothyroidism, unspecified; E86.0 Dehydration; E11.9 Type 2 diabetes mellitus without complications; E86.1 Hypovolemia; G30.9 Alzheimer's disease, unspecified; F02.80 Dementia in other diseases classified elsewhere, unspecified severity, without behavioral disturbance, psychotic disturbance, mood disturbance, and anxiety; I10 Essential (primary) hypertension; Z79.82 Long term (current) use of aspirin; Z87.891 Personal history of nicotine dependence; R53.1 Weakness; F09 Unspecified mental disorder due to known physiological condition; Z79.02 Long term (current) use of antithrombotics/antiplatelets
CPT/HCPCS: 36415; 71045-TC; 80048-TC; 80076-TC; 81000-TC; 82272-TC; 82728-TC; 83540-TC; 83605-TC; 83735-TC; 84100-TC; 84484-TC; 85025-TC; 85730-TC; 86850-TC; 87040-TC; 87081-TC; 87086-TC; 92526; 92611-TC; G0378; J0696; J1650; J3490; J7030; J7040; J7070; U0003-CS